=== PATIENT | male | born 1995 | race Caucasian/White ===

== ENCOUNTER 2017-08-28 21:40 | Emergency (ER) | payer BC ==
[2017-08-28] MEDS ORDERED: Bacitracin Oint 1 GM U/D Packet TOP ONE (22:24)
--- NOTE | 2017-08-28 22:24 | EDM.PDOC ---
ED HPI GENERAL MEDICAL PROBLEM - General Chief Complaint: Bite:Animal, Insect Stated Complaint: DOG BITE Time Seen by Provider: 08/28/17 22:00 Source of Information: Reports: Patient History Limitations: Reports: No Limitations - History of Present Illness INITIAL COMMENTS - FREE TEXT/NARRATIVE: pt petted a dog and the dog grabbed his left elebow. He states th dog was current with shots. The pt is current with his tetanus. Onset: Today Duration: Hour(s): Location: Reports: Upper Extremity, Left Associated Symptoms: Reports: No Other Symptoms - Related Data Allergies Allergy/AdvReac Type Severity Reaction Status Date / Time No Known Allergies Allergy Verified 08/28/17 22:06 Home Meds: Home Meds NK [No Known Home Meds] 08/28/17 [History] Past Medical History - Past Health History Medical/Surgical History: Denies Medical/Surgical History Social & Family History - Tobacco Use Smoking Status *Q: Current Every Day Smoker Years of Tobacco use: 3 Packs/Tins Daily: 0.2 - Caffeine Use Caffeine Use: Reports: Soda - Recreational Drug Use Recreational Drug Use: No ED ROS GENERAL - Review of Systems Review Of Systems: See Below Constitutional: Reports: No Symptoms HEENT: Reports: No Symptoms Respiratory: Reports: No Symptoms Cardiovascular: Reports: No Symptoms Endocrine: Reports: No Symptoms GI/Abdominal: Reports: No Symptoms : Reports: No Symptoms Musculoskeletal: Reports: Other (pt has a dog bite on the left elebow. ) Skin: Reports: No Symptoms ED EXAM, ANIMAL BITE - Physical Exam Exam: See Below Text/Narrative:: pt has a dog bite on the left elebow Exam Limited By: No Limitations General Appearance: Alert Extremities: Other ( left elebow has a bite on it. In a area 1/2 inch in length the dog bearly broke the skin. This was a definite bite. The dog was current with his shots. ) Neurological: Alert, Oriented Course - Vital Signs Last Recorded V/S: Last Vital Signs Temp 37.3 C 08/28/17 22:06 Pulse 71 08/28/17 22:06 Resp 16 08/28/17 22:06 BP 118/44 L 08/28/17 22:06 Pulse Ox 97 08/28/17 22:06 - Orders/Labs/Meds Meds: Medications Discontinued Medications Generic Name Dose Route Start Last Admin Trade Name Freq PRN Reason Stop Dose Admin Bacitracin 1 dose 08/28/17 22:24 Bacitracin Oint 1 Gm TOP 08/28/17 22:25 ONETIME ONE Departure - Departure Time of Disposition: 22:23 Disposition: Home, Self-Care 01 Condition: Fair Clinical Impression: Dog bite - Discharge Information Referrals: PCP,None [Primary Care Provider] - Forms: ED Department Discharge Care Plan Goals: clean and use bacatracin on the bite. , augmentin 400mg 2 tsp twice dilshad for 1 week.
== END 2017-08-28 22:57 | disposition home or self-care (01) ==
LOC: JP.ED 21:40
DX: S51.052A Open bite, left elbow, initial encounter (principal); W54.0XXA Bitten by dog, initial encounter; F17.210 Nicotine dependence, cigarettes, uncomplicated
CPT/HCPCS: 99283